=== PATIENT | female | born 1970 | race American Indian/Alaskan Native ===

== ENCOUNTER 2021-10-03 11:46 | Emergency (ER) | payer SELFPAY ==
[2021-10-03 11:58] VITALS: BP 138/92
[2021-10-03 13:30] LABS: Basophils % (Auto) 0.5 % (0.0-1.8); Eosinophils % (Auto) 0.3 % (0.0-4.3); Hematocrit 39.7 % (30.3-42.9); Hemoglobin 12.9 gm/dl (10.1-14.3); Lymphocytes # (Auto) 1.5 K/mm3 (1.2-5.4); Lymphocytes % (Auto) 14.4 % (13.4-35.0); Mean Corpuscular HGB Conc 33 % (30-34); Mean Corpuscular Volume 86 fl (79-97); Monocytes # (Auto) 1.1 K/mm3 (0.0-0.8); Monocytes % (Auto) 11.1 % (0.0-7.3); Platelet Count 558 K/mm3 (140-440); Red Blood Count 4.63 M/mm3 (3.65-5.03)
[2021-10-03 13:48] LABS: Alanine Aminotransferase 10 units/L (7-56); Albumin 5.6 g/dL (3.9-5); BUN/Creatinine Ratio 19; Blood Urea Nitrogen 19 mg/dL (7-17); Calcium 11.2 mg/dL (8.4-10.2); Hemolysis Index 8
--- NOTE | 2021-10-04 10:04 | Electrocardiograph Report ---
[facility] Test Date: 2021-10-03 Test Time: 12:03:21 Pat Name: TIM CISNEROS Department: Room: Gender: F Juvenile Officer: FRANKIE : 1970 Requested By: ED DOC Order Number: [id number] Reading MD: Foster Carmona Measurements Intervals [place] Rate: 105 P: 87 [place]: 133 QRS: 62 QRSD: 75 T: 50 QT: 317 QTc: 419 Interpretive Statements Sinus tachycardia No previous ECG available for comparison Electronically Signed On 10-04-2021 10:03:58 EDT by Foster Carmona
== END 2021-10-04 02:50 | disposition left against medical advice (07) ==
LOC: ED 11:46
DX: R41.82 Altered mental status, unspecified (principal); Z53.21 Procedure and treatment not carried out due to patient leaving prior to being seen by health care provider
CPT/HCPCS: 36415; 80053; 80178; 80320; 85025; 93005; G0480